=== PATIENT | female | born 1975 | race Caucasian/White ===

== ENCOUNTER → 2020-03-11 17:18 | Outpatient (CLI) | payer BC, SELFPAY ==
--- NOTE | ~2020-03-11 | MM_ITS ---
EXAMINATION: MM screening jacob BI w yrn HISTORY: Screening mammogram TECHNIQUE: Craniocaudal and mediolateral oblique 3-D tomosynthesis images were obtained and synthetic 2-D images were generated. CAD analysis was submitted and interpreted. COMPARISON: 02/03/2019, 12/26/2017 bilateral digital screening mammogram examinations BREAST PARENCHYMAL COMPOSITION: There are scattered areas of fibroglandular density. FINDINGS: There is no evidence of suspicious mass, calcification, or architectural distortion to sugg est malignancy in either breast. There has been no suspicious interval change. IMPRESSION: 1. No mammographic evidence of malignancy. 2. Recommend routine screening mammography in one year. BI-RADS Category 1: Negative Reviewed, dictated and finalized at location A. ER UP
== END ==
PROVIDERS: Visit Provider Obstetrics & Gynecology
DX: Z12.31 Encounter for screening mammogram for malignant neoplasm of breast (principal)
CPT/HCPCS: 77063; 77067

== ENCOUNTER → 2021-06-09 07:08 | Outpatient (CLI) | payer BC, SELFPAY ==
--- NOTE | ~2021-06-09 | MM_ITS ---
EXAMINATION: MM screening jacob BI w yrn HISTORY: Screening mammogram TECHNIQUE: Craniocaudal and mediolateral oblique 3-D tomosynthesis images were obtained and synthetic 2-D images were generated. CAD analysis was submitted and interpreted. COMPARISON: 03/07/2020, 02/03/2019, 12/26/2017 bilateral screening mammogram examinations BREAST PARENCHYMAL COMPOSITION: There are scattered areas of fibroglandular density. FINDINGS: There is no evidence of suspicious mass, calcification, or architectural distortion to sugg est malignancy in either breast. There has been no suspicious interval change. IMPRESSION: 1. No mammographic evidence of malignancy. 2. Recommend routine screening mammography in one year. BI-RADS Category 1: Negative Reviewed, dictated and finalized at location A. 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
== END ==
PROVIDERS: PCP Nurse Practitioner Family; Visit Provider Obstetrics & Gynecology
DX: Z12.31 Encounter for screening mammogram for malignant neoplasm of breast (principal)
CPT/HCPCS: 77063; 77067

== ENCOUNTER 2022-05-10 08:58 | Emergency (ER) | payer BC, SELFPAY ==
--- NOTE | ~2022-05-10 | XR_ITS ---
Clinical Indication: Chest pain PA and lateral views of the chest: Comparison: None Findings: The lungs are clear, without evidence of focal consolidation or pleural effusion. Cardiome diastinal silhouette is within normal limits. Bones and soft tissues are unremarkable. Impression: Normal chest. Reviewed, dictated and finalized at [facility]. 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
--- NOTE | 2022-05-10 09:00 | ECG_ITS ---
Measurements Intervals [place] Rate: 118 P: 55 PA: 115 QRS: 33 QRSD: 89 T: 39 QT: 334 QTc: 469 Interpretive Statements SINUS TACHYCARDIA WITH SHORT PA INTERVAL POSSIBLE LEFT ATRIAL ENLARGEMENT NONSPECIFIC ST & T-WAVE ABNORMALITY- ANT/INF LEADS ABNORMAL ECG NO PREVIOUS ECG AVAILABLE FOR COMPARISON Electronically Signed On 05-10-2022 10:52:42 MOTOR ANALYST by Abdon Whitley D.O.
[2022-05-10 09:04] VITALS: BP 150/77; PULSE 116; RESP 16; TEMP 36.9; O2SAT 97
[2022-05-10 09:19] LABS: Basophils Absolute Auto 0.1 K/mm3 (0.0-0.1); Basophils Percent Auto 0.4 % (0.2-1.2); Eosinophils Absolute Auto 0.2 K/mm3 (0-0.3); Eosinophils Percent Auto 1.3 % (0-4.4); Hematocrit 39.8 % (37.0-47.0); Hemoglobin 13.2 g/dL (12.0-15.0); Immature Granulocyte Absolute 0.09 K/mm3 (0.00-0.031); Immature Granulocyte Percent A 0.8 % (0-0.5); Lymphocytes Absolute Auto 3.48 K/mm3 (0.9-3.2); Lymphocytes Percent Auto 29.3 % (18.3-44.2); Mean Corpuscular HGB Conc 33.2 g/dl (32-36); Mean Corpuscular Hemoglobin 29.6 pg (26-34); Mean Corpuscular Volume 89.2 fl (80-100); Mean Platelet Volume 10.2 fl (7.4-10.4); Monocytes Absolute Auto 0.6 K/mm3 (0.1-0.6); Monocytes Percent Auto 5.4 % (2.6-8.5); Neutrophils Absolute Auto 7.5 K/mm3 (1.3-6.7); Neutrophils Percent Auto 62.8 % (45.5-73.1); Platelet Count Result 419 k/mm3 (150-375); Red Blood Count 4.46 M/mm3 (4.2-5.4); Red Cell Distribution Width 13.7 % (11.5-14.5); White Blood Count 11.9 K/mm3 (4.5-10.0)
[2022-05-10 09:30] LABS: INR 0.9; Prothrombin Time 12.2 Seconds (11.1-14.7)
[2022-05-10 09:31] LABS: Partial Thromboplastin Time 24.1 SECONDS (22.3-36.8); Potassium 3.3 mmol/L (3.4-5.0)
[2022-05-10 09:32] LABS: Alanine Aminotransferase 24 U/L (6-35); Albumin Level 4.4 g/dL (3.5-5.1); Alkaline Phosphatase 73 U/L (38-126); Anion Gap 10 mmol/L (8-16); Aspartate Amino Transferase 23 U/L (14-36); Bilirubin,Total 0.6 mg/dL (0.2-1.3); Blood Urea Nitrogen 11 mg/dL (7-17); Calcium 8.7 mg/dL (8.4-10.2); Carbon Dioxide 20 mmol/L (22-30); Chloride 106 mmol/L (98-107); Estimated CRCL calculation 87 ml/min; Estimated Glomerular Filt Rate > 60; Glucose 123 mg/dL (65-110); Lipase 57 U/L (23-300); Sodium 136 mmol/L (137-145)
[2022-05-10 09:41] LABS: Troponin I < 0.012 ng/mL (0.000-0.034)
[2022-05-10] MEDS: ONDANSETRON INJ 4 MG/2 ML VIAL IV PUSH (14:08)
[2022-05-10] MEDS: KETOROLAC 30 MG/ML VIAL (*BKC) IV PUSH (14:08)
[2022-05-10 14:24] VITALS: PULSE 97
[2022-05-10 14:25] VITALS: O2SAT 98
[2022-05-10 14:58] LABS: Troponin I < 0.012 ng/mL (0.000-0.034)
[2022-05-10 15:09] VITALS: BP 110/57; PULSE 93; RESP 20; O2SAT 98
[2022-05-10 15:35] LABS: Troponin I < 0.012 ng/mL (0.000-0.034)
--- NOTE | 2022-05-10 15:58 | ED.CHESTPAIN ---
HPI - Chest Pain General Chief Complaint: Chest Pain Stated Complaint: chest pain/n/dizzy Time Seen by Provider: 05/10/22 11:26 History of Present Illness HPI narrative: Patient is a 46-year-old female who presents the ER with reports of chest pain. Began yesterday. Aching and central. Nonradiating. Associated with nausea. Patient then had several rounds of emesis. Since then she has had some aching back pain. No fevers or chills or sweats. No pain with deep breath. No cough. No diarrhea. Denies any abdominal discomfort. No exertional chest pain. No history of cardiac disease. Cannot describe any modifying factors. Related Data Home Medications Medication Instructions Recorded Confirmed amitriptyline 50 mg tablet 50 mg PO QHS 02/23/22 02/23/22 rizatriptan 10 mg tablet See Rx Instructions PO .COMPLEX 02/23/22 02/23/22 Allergies Allergy/AdvReac Type Severity Reaction Status Date / Time No Known Allergies Allergy Unknown Verified 05/10/22 15:10 Review of Systems Review of Systems: All systems reviewed & are unremarkable except as noted in HPI and below Constitutional: Constitutional: Denies chills, Denies fatigue and Denies fever(s) ENT: Denies nasal congestion and Denies sore throat Cardiovascular: Cardiovascular: Reports chest pain, Denies rapid heart rate and Denies radiating jaw, neck or arm pain Respiratory: Respiratory: Denies cough and Denies dyspnea Gastrointestinal: Gastrointestinal: Denies abdominal pain, Denies diarrhea, Reports nausea and Reports vomiting Genitourinary: Genitourinary: Denies dysuria and Denies flank pain [facility] Past Medical History Medical History (Updated 05/10/22 @ 16:00 by Rocky Boo MD) Lesion of liver Migraines Miscarriage (~05/05/96) Screening mammogram, encounter for Surgical History Surgical History History of 08/18/00 primary c/s--breech water retention/swelling Joy 10/15/05 rpt c/s no complications Fredis History of cholecystectomy (09/29/00) Family History Family History Grandparent Hypertension maternal grandfather Diabetes mellitus maternal grandfather maternal grandmother Social History Social History (Updated 02/23/22 @ 07:59 by Patricia Rudolph [facility]) Smoking status: Never smoker Alcohol intake: never Substance use: never Substance use type: does not use Living arrangements: other Additional living arrangements comments: 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 HEAD: Normocephalic, atraumatic. ENT: Mucous membranes moist. CHEST: Clear to auscultation. No respiratory distress. HEART: Tachycardic and regular. Normal peripheral pulses. ABDOMEN: Soft, nontender, nondistended. Back: No reproducible midline or paraspinal muscular tenderness of the T/L-spine. EXTREMITIES: Normal range of motion. No edema. SKIN: Warm, dry, no rash. NEURO: Alert and oriented x3. PSYCH: Normal mood and affect. Course Course Emergency Course: Patient informed of results. Feeling much better after IV Toradol, tachycardia resolved. Troponin negative x2. [place] to be appropriate for outpatient management. Vital Signs Vital signs: Vital Signs Temperature 98.4 F 05/10/22 09:04 Pulse Rate 116 H 05/10/22 09:04 Respiratory Rate 16 05/10/22 09:04 Blood Pressure 150/77 H 05/10/22 09:04 Pulse Oximetry 97 05/10/22 09:04 Oxygen Delivery Room Air 05/10/22 09:04 Temperature 98.4 F 05/10/22 09:04 Pulse Rate 93 05/10/22 15:09 Respiratory Rate 20 05/10/22 15:09 Blood Pressure 110/57 L 05/10/22 15:09 P
[2022-05-10 16:10] VITALS: BP 109/53; PULSE 100; RESP 20; O2SAT 98
== END 2022-05-10 16:12 | disposition home or self-care (01) ==
PROVIDERS: Emergency Provider Emergency Medicine; PCP Nurse Practitioner Family
DX: R07.9 Chest pain, unspecified (principal); R00.0 Tachycardia, unspecified; R94.31 Abnormal electrocardiogram [ECG] [EKG]
CPT/HCPCS: 36415; 71046; 80053; 83690; 84484; 85025; 85610; 85730; 93005; 96374; 96375; 99284; J1885; J2405

== ENCOUNTER → 2022-06-12 08:39 | Outpatient (CLI) | payer BC, SELFPAY ==
--- NOTE | ~2022-06-12 | MM_ITS ---
EXAMINATION: MM screening jacob BI w yrn HISTORY: Screening mammogram TECHNIQUE: Craniocaudal and mediolateral oblique 3-D tomosynthesis images were obtained and synthetic 2-D images were generated. CAD analysis was submitted and interpreted. COMPARISON: June 09, 2021, March 11, 2020, February 03, 2019 bilateral screening mammogram exam inations BREAST PARENCHYMAL COMPOSITION: There are scattered areas of fibroglandular density. FINDINGS: There is no evidence of suspicious mass, calcification, or architectural distortion to sugg est malignancy in either breast. There has been no suspicious interval change. IMPRESSION: 1. No mammographic evidence of malignancy. 2. Recommend routine screening mammography in one year. BI-RADS Category 1: Negative Reviewed, dictated and finalized at location A. 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
== END ==
PROVIDERS: PCP Nurse Practitioner Family; Visit Provider Obstetrics & Gynecology
DX: Z12.31 Encounter for screening mammogram for malignant neoplasm of breast (principal)
CPT/HCPCS: 77063; 77067

== ENCOUNTER 2022-07-19 17:51 | Emergency (ER) | payer BC, SELFPAY ==
[2022-07-19 18:00] VITALS: BP 125/69; PULSE 101; RESP 16; TEMP 36.6; O2SAT 100
--- NOTE | 2022-07-19 18:27 | ED.URI ---
HPI - URI/Sore Throat General Chief Complaint: Upper Respiratory Infection Stated Complaint: Lt Ear Irritation,Sore Throat,Congestion Source: patient Mode of arrival: ambulatory Limitations: no limitations History of Present Illness HPI Narrative: 46-year-old female presents to [facility] with complaints of sinus pressure, nasal congestion, left ear pain and pressure, sore throat, body aches and chills for the past 4-5 days. Patient takes Zyrtec and Flonase daily. Patient also has been taking [id number] decongestants, ibuprofen and using saline flushes with little relief. Patient is a nonsmoker. Patient denies sick contacts. Patient denies recent travel. Patient denies concerns for COVID and declines COVID test today MD elicited complaint: cough, sore throat, rhinorrhea, nasal congestion and sinus pain Onset (ago): day(s) (4) Consistency: constant Able to tolerate fluids by mouth: Yes Relieving factors: nothing Treatments prior to arrival: ibuprofen and cold medicine Related Data Home Medications Medication Instructions Recorded Confirmed amitriptyline 50 mg tablet 75 mg PO QHS 02/23/22 07/19/22 rizatriptan 10 mg tablet See Rx Instructions PO .COMPLEX 02/23/22 07/19/22 Allergies Allergy/AdvReac Type Severity Reaction Status Date / Time No Known Allergies Allergy Unknown Verified 07/19/22 18:04 Review of Systems Constitutional: Constitutional: Reports chills, Reports fatigue and Denies fever(s) ENT: Denies vertigo, Denies dizziness, Denies epistaxis, Reports nasal congestion and Reports sore throat Comments: Left ear pain, sinus pressure, runny nose Respiratory: Respiratory: Reports cough, Denies dyspnea and Denies wheezing Gastrointestinal: Gastrointestinal: Denies abdominal pain, Denies constipation, Denies heartburn and Denies diarrhea Integumentary/Breasts: Skin/Breast: Denies pruritus, Denies erythema and Denies rash Neurologic: Denies vertigo, Denies dizziness, Denies syncope and Denies headache(s) [facility] Past Medical History Medical History Lesion of liver Migraines Miscarriage (~05/05/96) Screening mammogram, encounter for Surgical History Surgical History History of 08/18/00 primary c/s--breech water retention/swelling Joy 10/15/05 rpt c/s no complications Fredis History of cholecystectomy (09/29/00) Family History Family History Grandparent Hypertension maternal grandfather Diabetes mellitus maternal grandfather maternal grandmother Social History Social History Smoking status: Never smoker Alcohol intake: never Substance use: never Substance use type: does not use Living arrangements: other Additional living arrangements comments: 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 There is no relevant family history pertinent to the presenting complaint. Exam Const: General: healthy appearing and no acute distress Nutritional Appearance: well nourished Orientation/consciousness: patient oriented x3 Limitations: no limitations HENMT: Head: normal to inspection Ears: TM's normal bilaterally and TM abnormal dull on the left, wth effusion serous on the left and erythematous on the left Face/Nose/Sinus: Nasal discharge present clear bilateral Mouth: Yes moist mucous membranes Throat: posterior oropharynx normal and uvula midline Other: Moderate bilateral nasal congestion noted, left is worse than right Eyes: Conjunctivae: conjuncti
== END 2022-07-19 18:36 | disposition home or self-care (01) ==
PROVIDERS: Emergency Provider Nurse Practitioner Family; PCP Nurse Practitioner Family
DX: J32.9 Chronic sinusitis, unspecified (principal); H65.112 Acute and subacute allergic otitis media (mucoid) (sanguinous) (serous), left ear
CPT/HCPCS: 87081; 87880; 99213; G0463

== ENCOUNTER 2023-03-24 11:16 | Emergency (ER) | payer BC, SELFPAY ==
--- NOTE | ~2023-03-24 | XR_ITS ---
EXAMINATION: XR chest 2V 03/24/2023 11:59 INDICATION: Cough and shortness of breath PROCEDURE: 2 view chest COMPARISON: 05/10/2022 FINDINGS: The lungs are clear. The cardiomediastinal silhouette is within normal limits. There are no pleural effusions. There is no pneumothorax suspected. IMPRESSION: 1: NO ACUTE CARDIOPULMONARY DISEASE. Reviewed, dictated and finalized at location L. 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
[2023-03-24 11:28] VITALS: BP 121/66; PULSE 88; RESP 18; TEMP 36.5; O2SAT 100
--- NOTE | 2023-03-24 11:54 | ED.URI ---
HPI - URI/Sore Throat General Chief Complaint: Upper Respiratory Infection Stated Complaint: Cough,Congestion,Headache,Shoulder Pain Time Seen by Provider: 03/24/23 11:38 Source: patient and RN notes reviewed Mode of arrival: ambulatory Limitations: no limitations History of Present Illness HPI Narrative: Patient presents today complaining of a 3 day history of sinus pressure, bilateral ear pain, left greater than right, mild cough, midback pain, shortness of breath with exertion, fever up to 102.2. Currently rates her pain 6/10 and has been taking Mucinex, Tylenol, ibuprofen with mild relief. Son is sick with similar symptoms. She is a nonsmoker. Denies history of asthma or COPD. Related Data Home Medications Medication Instructions Recorded Confirmed amitriptyline 50 mg tablet 75 mg PO QHS 02/23/22 03/24/23 Allergies Allergy/AdvReac Type Severity Reaction Status Date / Time No Known Allergies Allergy Unknown Verified 03/24/23 11:46 Review of Systems Review of Systems: CONSTITUTIONAL: Denies body aches, chills, or sweats.+ or fever EYES: Denies visual changes, redness, or discharge. ENT: Denies rhinorrhea, congestion, sore throat. + bilateral ear pain, sinus pressure CARDIOVASCULAR: Denies chest pain, palpitations, or edema. RESPIRATORY: + cough, shortness of breath with exertion GASTROINTESTINAL: Denies abdominal pain, nausea, vomiting, or diarrhea. GENITOURINARY: Denies dysuria or hematuria. SKIN: Denies rash, itching, or wounds. MUSCULOSKELETAL: Denies joint pain, or myalgia.+ mid back pain NEUROLOGIC: Denies headache, numbness, tingling, or weakness. PSYCH: Denies depression or anxiety. [facility] Past Medical History Medical History Lesion of liver Migraines Miscarriage (~05/05/96) Screening mammogram, encounter for Surgical History Surgical History History of 08/18/00 primary c/s--breech water retention/swelling Joy 10/15/05 rpt c/s no complications Fredis History of cholecystectomy (09/29/00) Family History Family History Grandparent Hypertension maternal grandfather Diabetes mellitus maternal grandfather maternal grandmother Social History Social History Smoking status: Never smoker Second hand tobacco smoke exposure: Yes Alcohol intake: never Substance use: never Substance use type: does not use Lack of Transportation: No Lack of Food: Never True Current Housing: I Have Housing Concerned About Future Housing: No Difficulty Paying Gas/Electric Bills: No Difficulty Paying for Meds: No Currently Unemployed: No Education: Bachelor's Degree Difficulty w/ Childcare or Family Care: No Living arrangements: other Additional living arrangements comments: 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 Please see nursing chart for further information. There is no relevant family history pertinent to the presenting complaint Exam Narrative: GENERAL: Well-appearing, well-nourished, and in no acute distress. HEAD: Normocephalic, atraumatic. EYES: EOMI. No redness or drainage. Conjunctivae normal. ENT: Mucous membranes pink and moist. Nares clear. No rhinorrhea. Mild middle ear effusions bilaterally with clear fluid without evidence of bacterial infection. Throat mildly erythematous with mild edema. No exudate. Uvula midline. NECK: Normal AROM. Supple. No lymphade
== END 2023-03-24 12:35 | disposition home or self-care (01) ==
PROVIDERS: Emergency Provider Nurse Practitioner; PCP Nurse Practitioner Family
DX: J06.9 Acute upper respiratory infection, unspecified (principal)
CPT/HCPCS: 71046; 87081; 87880; 99213; G0463

== ENCOUNTER 2023-06-04 08:48 | Emergency (ER) | payer BC, SELFPAY ==
[2023-06-04 09:04] VITALS: BP 119/69; PULSE 98; RESP 16; TEMP 36.6; O2SAT 96
--- NOTE | 2023-06-04 09:22 | ED.URI ---
HPI - URI/Sore Throat General Chief Complaint: Upper Respiratory Infection Stated Complaint: sorethroat,chest congestion,sinus pressure Time Seen by Provider: 06/04/23 09:44 Source: patient and RN notes reviewed Mode of arrival: ambulatory Limitations: no limitations History of Present Illness HPI Narrative: 47-year-old female presented for complaint of cough and chest congestion, nasal congestion, ear pressure, sore throat. Onset 5 days. Reports temp up to 101. Taking mucinex D. Denies sob, wheezing, n/v/d. MD elicited complaint: cough Related Data Home Medications Medication Instructions Recorded Confirmed amitriptyline 50 mg tablet 75 mg PO QHS 02/23/22 03/24/23 rizatriptan 10 mg tablet mg 06/04/23 06/04/23 Allergies Allergy/AdvReac Type Severity Reaction Status Date / Time No Known Allergies Allergy Unknown Verified 06/04/23 09:03 Review of Systems Review of Systems: CONSTITUTIONAL: Endorses malaise, chills, fever EYES: Denies visual changes, redness, or discharge ENT: Reports rhinorrhea, congestion, otalgia, sore throat CARDIOVASCULAR: Denies chest pain, palpitations, edema RESPIRATORY: Reports cough, post nasal drainage. Denies dyspnea GASTROINTESTINAL: Denies abdominal pain, nausea, vomiting, diarrhea SKIN: Denies rash or itching MUSCULOSKELETAL: denies myalgia PMFSH Past Medical History Medical History Lesion of liver Migraines Miscarriage (~05/05/96) Screening mammogram, encounter for Surgical History Surgical History History of 08/18/00 primary c/s--breech water retention/swelling Joy 10/15/05 rpt c/s no complications Fredis History of cholecystectomy (09/29/00) Family History Family History Grandparent Hypertension maternal grandfather Diabetes mellitus maternal grandfather maternal grandmother Social History Social History Smoking status: Never smoker Second hand tobacco smoke exposure: Yes Alcohol intake: never Substance use: never Substance use type: does not use Lack of Transportation: No Lack of Food: Never True Current Housing: I Have Housing Concerned About Future Housing: No Difficulty Paying Gas/Electric Bills: No Difficulty Paying for Meds: No Currently Unemployed: No Education: Bachelor's Degree Difficulty w/ Childcare or Family Care: No Living arrangements: other Additional living arrangements comments: 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 EYES: PERRLA, conjunctivae clear ENT: Mucous membranes moist. Right TM pearly houser with dull light reflex and effusion. Left TM mildly erythematous, and intact with effusion; canal not erythematous, No drainage. no tragal tenderness. Oropharynx not erythematous without lesions or exudate, no drooling, no hoarseness, no trismus, uvula midline. No tripod positioning, muffled voice, soft palate or pharyngeal wall bulging NECK: Supple. No lymphadenopathy CHEST: Clear to auscultation, breath sounds equal. HEART: Regular rate and rhythm. No murmur heard. SKIN: Warm, dry, no rash. NEURO: Alert and oriented x3. PSYCH: Normal mood and affect Course Course Emergency Course: Patient is aware of diagnosis, understands and agrees to treatment plan. Anticipatory guidance given. Patient agrees to follow-up as directed and is aware of reasons to seek care at the emergency department. Portions of this record may have been created with voice recognition software Level of Care: Lizz Mir
== END 2023-06-04 09:59 | disposition home or self-care (01) ==
PROVIDERS: Emergency Provider Nurse Practitioner Family; PCP Nurse Practitioner Family
DX: J06.9 Acute upper respiratory infection, unspecified (principal); H66.002 Acute suppurative otitis media without spontaneous rupture of ear drum, left ear; Z20.822 Contact with and (suspected) exposure to COVID-19
CPT/HCPCS: 87081; 87426; 87804; 87880; 99213; G0463

== ENCOUNTER → 2023-06-18 09:43 | Outpatient (CLI) | payer BC, SELFPAY ==
--- NOTE | ~2023-06-18 | MM_ITS ---
EXAMINATION: MM screening jacob BI w yrn HISTORY: Screening mammogram TECHNIQUE: Craniocaudal and mediolateral oblique 3-D tomosynthesis images were obtained and synthetic 2-D images were generated. CAD analysis was submitted and interpreted. COMPARISON: June 12, 2022, June 09, 2021, March 11, 2020 bilateral screening mammogram exa minations BREAST PARENCHYMAL COMPOSITION: There are scattered areas of fibroglandular density. FINDINGS: There is no evidence of suspicious mass, calcification, or architectural distortion to sugg est malignancy in either breast. There has been no suspicious interval change. IMPRESSION: 1. No mammographic evidence of malignancy. 2. Recommend routine screening mammography in one year. BI-RADS Category 1: Negative Reviewed, dictated and finalized at location A. TUCKER
== END ==
PROVIDERS: PCP Obstetrics & Gynecology; Visit Provider Obstetrics & Gynecology
DX: Z12.31 Encounter for screening mammogram for malignant neoplasm of breast (principal)
CPT/HCPCS: 77063; 77067

== ENCOUNTER 2024-01-05 08:19 | Emergency (ER) | payer BC, SELFPAY ==
--- NOTE | ~2024-01-05 | CT_ITS ---
EXAMINATION: CT abdomen pelvis w con DATE: 01/05/2024 10:19 INDICATION: Nausea, vomiting, and diarrhea. Abdominal pain. TECHNIQUE: Computed tomography (CT) of the abdomen and pelvis was performed with 100 mL Omnipaque 350 intravenous contrast. Automated exposure control and iterative reconstruction technique were employe d. The dose-length product was 359.67 mGy-cm. COMPARISON: CT abdomen and pelvis 08/26/2017 FINDINGS: The visualized portions of the lung bases are clear without pneumonia or pleural effusion. The heart size is normal. No pericardial effusion. The liver demonstrates focal steatosis adjacent to the falciform ligament. There are changes of cholecystectomy. The spleen, pancreas, adrenal glands, and kidneys are normal. There is liquid stool in the colon correlating with the symptom of diarrhea. The appendix is normal. There are no pathologically enlarged lymph nodes. There is no free intraperit mccray fluid. There is mild thoracic and lumbar spondylosis. IMPRESSION: 1. No etiology for the patient's symptoms. Reviewed, dictated and finalized at location A.
--- NOTE | ~2024-01-05 | XR_ITS ---
EXAMINATION: XR chest 1V portable DATE: 01/05/2024 09:26 INDICATION: Chest pain. TECHNIQUE: A single frontal view of the chest was obtained. COMPARISON: Chest 2 views 03/24/2023 FINDINGS: There is no pneumonia, pleural effusion, or pneumothorax. The heart size is normal. Surgica l clips in the right upper quadrant are likely from cholecystectomy. IMPRESSION: 1. No acute cardiopulmonary disease. Reviewed, dictated and finalized at location A.
[2024-01-05 08:25] VITALS: BP 121/65; PULSE 92; RESP 18; O2SAT 98
--- NOTE | 2024-01-05 08:27 | ECG_ITS ---
Test Date: 2024-01-05 08:29:48 Measurements Intervals [place] Rate: 87 P: 62 FL: 107 QRS: 34 QRSD: 90 T: 41 QT: 355 QTc: 429 Interpretive Statements SINUS RHYTHM WITH SHORT FL INTERVAL MINIMAL Q WAVES- INF/LAT LEADS BASELINE ARTIFACT- I, II, AVR, AVL, AVF BORDERLINE ECG No previous ECG available for comparison Electronically Signed On 01-05-2024 09:07:38 CDT by Abdon Whitley D.O.
--- NOTE | 2024-01-05 08:48 | ED.NAVMDI ---
HPI - Nausea/Vomiting/Diarrhea General Chief complaint: Nausea/Vomiting/Diarrhea Stated complaint: nausea, vomiting, diarrhea Time Seen by Provider: 01/05/24 08:35 History of Present Illness HPI Narrative: 48-year-old female with a past medical history of hypertension anxiety presented to the emergency department chief complaint of nauseousness, vomiting, profuse watery diarrhea and some chest tightness radiating to her left jaw. She states that her symptoms started as just nausea and vomiting yesterday which was acute in onset. She did not have any pain at that time and started developing cramping abdominal sensations and watery diarrhea. She has had multiple rounds of moderate diarrhea and then at 4:30 a.m. this morning she woke up with some chest tightness she describes a burning sensation that radiates into her left jaw. Was previously in her normal state of health, denies any new foods or exposures. No in the hospital similar symptoms. Denies any shortness of breath, present abdominal pain, back pain, urinary complaints, complaints, injuries or traumas. History of a cholecystectomy but has her appendix. Related Data Home Medications Medication Instructions Recorded Confirmed amitriptyline 50 mg tablet 75 mg PO QHS 02/23/22 03/24/23 rizatriptan 10 mg tablet mg 06/04/23 06/04/23 Allergies Allergy/AdvReac Type Severity Reaction Status Date / Time No Known Allergies Allergy Unknown Verified 01/05/24 08:39 Review of Systems Review of Systems: As reviewed above in HPI [facility] Past Medical History Medical History Lesion of liver Migraines Miscarriage (~05/05/96) Screening mammogram, encounter for Surgical History Surgical History History of 08/18/00 primary c/s--breech water retention/swelling Joy 10/15/05 rpt c/s no complications Fredis History of cholecystectomy (09/29/00) Family History Family History Grandparent Hypertension maternal grandfather Diabetes mellitus maternal grandfather maternal grandmother Social History Social History Smoking status: Never smoker Second hand tobacco smoke exposure: Yes Alcohol intake: never Substance use: never Substance use type: does not use Lack of Transportation: No Lack of Food: Never True Current Housing: I Have Housing Concerned About Future Housing: No Difficulty Paying Gas/Electric Bills: No Difficulty Paying for Meds: No Currently Unemployed: No Education: Bachelor's Degree Difficulty w/ Childcare or Family Care: No Living arrangements: other Additional living arrangements comments: 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 Mucous membranes moist. NECK: Supple. CHEST: [Clear to auscultation. No respiratory distress.] HEART: [Regular rate and rhythm]. No murmur heard. [Normal peripheral pulses.] ABDOMEN: [Soft, nondistended], [nontender], [No rigidity or guarding] EXTREMITIES: Normal range of motion. [No edema.] SKIN: Warm, dry, no rash. NEURO: [No focal deficits]. Alert and oriented [x3.] PSYCH: [Normal mood and affect.] Course Vital Signs Vital signs: Vital Signs Pulse Rate 92 01/05/24 08:25 Respiratory Rate 18 01/05/24 08:25 Blood Pressure 121/65 01/05/24 08:25 Pulse Oximetry 98 01/05/24 08:25 Oxygen Delivery Room Air 01/05/24 08:
[2024-01-05 09:07] LABS: Basophils Percent Auto 0.2 % (0.2-1.2); Eosinophils Absolute Auto 0.4 K/mm3 (0-0.3); Eosinophils Percent Auto 2.9 % (0-4.4); Hematocrit 45.4 % (37.0-47.0); Hemoglobin 15.5 g/dL (12.0-15.0); Immature Granulocyte Absolute 0.04 K/mm3 (0.00-0.031); Immature Granulocyte Percent A 0.3 % (0-0.5); Lymphocytes Absolute Auto 2.89 K/mm3 (0.9-3.2); Mean Corpuscular HGB Conc 34.1 g/dl (32-36); Mean Corpuscular Hemoglobin 29.8 pg (26-34); Mean Corpuscular Volume 87.1 fl (80-100); Monocytes Absolute Auto 0.9 K/mm3 (0.1-0.6); Monocytes Percent Auto 7.2 % (2.6-8.5); Neutrophils Absolute Auto 7.9 K/mm3 (1.3-6.7); Neutrophils Percent Auto 65.4 % (45.5-73.1); Platelet Count Result 495 k/mm3 (150-375); Red Blood Count 5.21 M/mm3 (4.2-5.4)
[2024-01-05] MEDS: SODIUM CHLORIDE 0.9% IV 1,000 ML 999 ML IV CONT (09:07)
[2024-01-05] MEDS: FAMOTIDINE 20 MG/2 ML VIAL IV PUSH (09:07)
[2024-01-05] MEDS: MAG HYDROX/AL HYDROX/SIMETH 30 ML UDC PO (09:07)
[2024-01-05] MEDS: ONDANSETRON INJ 4 MG/2 ML VIAL IV PUSH (09:07)
[2024-01-05 09:14] LABS: Alanine Aminotransferase 36 U/L (6-35); Albumin Level 4.8 g/dL (3.5-5.1); Alkaline Phosphatase 102 U/L (38-126); Anion Gap 12 mmol/L (4-12); Aspartate Amino Transferase 26 U/L (14-36); Bilirubin,Total 1.4 mg/dL (0.2-1.3); Blood Urea Nitrogen 15 mg/dL (7-17); Calcium 9.1 mg/dL (8.4-10.2); Carbon Dioxide 23 mmol/L (22-30); Chloride 102 mmol/L (98-107); Estimated CRCL calculation 59 ml/min; Estimated Glomerular Filt Rate > 60; Glucose 92 mg/dL (65-110); Lipase 42 U/L (23-300); Potassium 3.6 mmol/L (3.4-5.0); Sodium 137 mmol/L (137-145)
[2024-01-05 09:15] LABS: Lactic Acid Reflex 0.8 mmol/L (0.7-2.0)
[2024-01-05 09:25] LABS: Troponin I < 0.012 ng/mL (0.000-0.034)
[2024-01-05 09:30] VITALS: BP 121/74; PULSE 73; RESP 15; O2SAT 100
[2024-01-05 09:56] LABS: Add Urine Microscopic? YES; Appearance Urine Cloudy (Clear); Bacteria Urine 4+ /hpf; Bilirubin Urine 2+ (Negative); Blood Urine Negative (Negative); Color Urine Dark Yellow (Yellow); Glucose Urine UA Negative (Negative); Ketones Urine 2+ mg/dL (Negative); Leukocyte Esterase Ur Trace LEU/UL (Negative); Nitrate Urine Negative (Negative); Non Pathogenic Casts >20; Protein Urine 1+ mg/dL (Negative); Specific Grav Ur 1.037 (1.001-1.035); Squamous Epithelial Cell Urine Moderate /hpf (Few); WBC Urine 0-5 /hpf (0-3); pH Urine 5.5 (5.0-9.0)
[2024-01-05 10:04] LABS: BEDSIDEPREGUCG Negative (Negative)
[2024-01-05 10:31] VITALS: BP 119/69; PULSE 84; RESP 20; O2SAT 100
[2024-01-05 11:00] VITALS: BP 123/75; PULSE 79; RESP 19; O2SAT 100
[2024-01-05 11:10] VITALS: BP 136/75; PULSE 92; RESP 20; O2SAT 98
== END 2024-01-05 11:10 | disposition home or self-care (01) ==
PROVIDERS: Emergency Provider Student in an Organized Health Care Education/Training Program; PCP Nurse Practitioner Family
DX: K52.9 Noninfective gastroenteritis and colitis, unspecified (principal); N39.0 Urinary tract infection, site not specified; Z90.49 Acquired absence of other specified parts of digestive tract
CPT/HCPCS: 36415; 71045; 74177; 80053; 81001; 81025; 83605; 83690; 84484; 85025; 93005; 96361; 96374; 96375; 99284; A9270; J2405; J7030; Q9967

== ENCOUNTER 2024-06-23 08:48 | Outpatient (CLI) | payer BC, SELFPAY ==
--- NOTE | ~2024-06-23 | MM_ITS ---
EXAMINATION: MM screening jacob BI w yrn HISTORY: Screening mammogram TECHNIQUE: Craniocaudal and mediolateral oblique 3-D tomosynthesis images were obtained and synthetic 2-D images were generated. CAD analysis was submitted and interpreted. COMPARISON: 06/18/2023, 06/12/2022, 06/09/2021 BREAST PARENCHYMAL COMPOSITION:Dense: The breasts are heterogeneously dense, which may obscure small masses. FINDINGS: No suspicious mass, calcification, or architectural distortion are identified in either davi ast to suggest malignancy. There has been no suspicious interval change. IMPRESSION: No mammographic evidence of malignancy. Recommend routine screening mammography in one year. BI-RADS Category 1: Negative Reviewed, dictated and finalized at location .
== END 2024-06-23 08:49 | disposition home or self-care (01) ==
LOC: MICIMG 08:49
PROVIDERS: PCP Nurse Practitioner Family; Visit Provider Obstetrics & Gynecology
DX: Z12.31 Encounter for screening mammogram for malignant neoplasm of breast (principal)
CPT/HCPCS: 77063; 77067

== ENCOUNTER 2025-03-26 08:05 | Emergency (ER) | payer BC, SELFPAY ==
--- NOTE | 2025-03-26 08:11 | ED.URI ---
HPI - URI/Sore Throat General Chief Complaint: Upper Respiratory Infection Stated Complaint: Sinus Infection Source: patient and RN notes reviewed Mode of arrival: ambulatory Limitations: no limitations History of Present Illness HPI Narrative: Patient is a 49-year-old female who presents to the [facility] with multiple complaints. Patient has complaints of sore throat, bilateral ear pain (worse on left than the right), congestion, and sinus tenderness. Patient states that her symptoms began on Tuesday. They have progressively worsened over the last few days. Patient states that she has been experiencing low-grade fevers. Patient also endorses generalized body aches. She has been around multiple sick contacts from work. Related Data Home Medications ?Medication ?Instructions ?Recorded ?Confirmed ?Last Taken ?Type amitriptyline 50 mg tablet 75 mg PO QHS 02/23/22 03/21/25 Unknown History rizatriptan 10 mg tablet mg 06/04/23 03/21/25 Unknown History citalopram 20 mg tablet 20 mg PO DAILY 03/05/24 03/21/25 Unknown History tirzepatide (weight loss) 15 15 mg subcut WEEKLY 03/05/24 03/21/25 Unknown History mg/0.5 mL subcutaneous pen injector (Zepbound) Allergies Allergy/AdvReac Type Severity Reaction Status Date / Time No Known Allergies Allergy Unknown Verified 03/26/25 08:26 Review of Systems Review of Systems: CONSTITUTIONAL: Reports fever and chills. EYES: Denies visual changes, redness, or discharge. ENT: Reports otalgia and sore throat. Reports congestion. CARDIOVASCULAR: Denies chest pain, palpitations, or edema. RESPIRATORY: Denies cough or dyspnea. GASTROINTESTINAL: Denies abdominal pain, nausea, vomiting, or diarrhea. GENITOURINARY: Denies dysuria or hematuria. SKIN: Denies rash or itching. MUSCULOSKELETAL: Denies back pain and joint pain, but reports myalgia. NEUROLOGIC: Denies headache, numbness, or weakness. Pertinent positives per HPI. [facility] Past Medical History Medical History Screening mammogram, encounter for Lesion of liver Miscarriage (~05/05/96) Migraines Surgical History Surgical History History of cholecystectomy (09/29/00) History of 08/18/00 primary c/s--breech water retention/swelling Joy 10/15/05 rpt c/s no complications Fredis Family History Family History Grandparent Hypertension maternal grandfather Diabetes mellitus maternal grandfather maternal grandmother Mother Pulmonary hypertension Social History Social History Smoking status: Never smoker Second hand tobacco smoke exposure: Yes Alcohol intake: never Substance use: never Substance use type: does not use Lack of Transportation: No Lack of Food: Never True Current Housing: I Have Housing Concerned About Future Housing: No Difficulty Paying Gas/Electric Bills: No Difficulty Paying for Meds: No Currently Unemployed: No Education: Bachelor's Degree Difficulty w/ Childcare or Family Care: No Living arrangements: with family Additional living arrangements comments: 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 There is no relevant family history pertinent to the patient complaint. Exam Narrative: GENERAL: This is a well-nourished, well-developed patient, in no apparent distress. HEAD: normocephalic, atraumatic. EYES: Sclera clear/white. Vision is grossly intact. EARS: External ears normal, auditory canals clear and without drainage. Bilateral TMs erythematous. Hearing grossly intact. NOSE: External nose normal with no obvious nasal discharge, nares with redness. Sinus tenderness. THROAT: Mucous membranes moist, oropharyngeal erythema. NECK: Neck supple, non-tender without lymphadenopathy, masses or thyromegaly. CARDIOVASCULAR: Regular rate and rhythm without murmurs, gallops, or rubs. RESPIRATORY: Clear to auscultation. Breath sounds equal bilaterally. No wheezes, rales, or rhonchi. GASTROINTESTINAL: Abdomen soft, non-tender, nondistended. Bowel sounds are active. No hepato-splenomegaly, or palpable masses. No guarding. SKIN: warm, intact with no suspicious lesions or rash, good texture and turgor. NEURO: awake, alert, and oriented to person, place and time. There were no obvious focal neurologic abnormalities. Course Course Level of Care: Express Care Visit Vital Signs Vital signs: Vital Signs Temperature 97.6 F 03/26/25 08:38 Pulse Rate 84 03/26/25 08:38 Respiratory Rate 24 H 03/26/25 08:38 Blood Pressure 114/42 L 03/26/25 08:38 Pulse Oximetry 100 03/26/25 08:38 Oxygen Delivery Room Air 03/26/25 08:38 Temperature 97.6 F 03/26/25 08:38 Pulse Rate 84 03/26/25 08:38 Respiratory Rate 24 H 03/26/25 08:38 Blood Pressure 114/42 L 03/26/25 08:38 Pulse Oximetry 100 03/26/25 08:38 Oxygen Delivery Room Air 03/26/25 08:38 Reviewed MDM MDM Narrative Medical decision making narrative: Take antibiotics as directed. May given ibuprofen and/or Tylenol as needed for pain and/or fever. Follow up with primary care provider in 7-10 days to have ear rechecked. Go to the ER for any new or worsening symptoms. Avoid smoking/second-hand smoke. Continue to take Tylenol or Motrin for pain. Increase your Vitamin C intake. Use a humidifier or vaporizer at night. Take Medications as prescribed. Drink plenty of water. 8-10 glasses per day. Use flonase 2 times per day for 5 days then as needed Take mucinex 2 times per day and be sure to take with 8oz of water. Follow up with Primary provider if not getting better. Differential Diagnosis Differential Diagnosis: sinusitis, upper respiratory infection, strep, influenza, covid, otitis media Lab Data MDM Lab Attestation statement: I personally reviewed the patient's lab results. Critical Care Time Critical Care Time Critical Care Time: No Discharge Plan Discharge Clinical Impression: Acute left otitis media Sinusitis Qualifiers: Sinusitis location: unspecified location Chronicity: acute Recurrence: non-recurrent Qualified Code(s): J01.90 - Acute sinusitis, unspecified Patient Disposition: Home Condition: Stable Instructions: Antibiotic Form, Sinusitis (ED), Ear Infection (ED) Additional Instructions: Take antibiotics as directed. May given ibuprofen and/or Tylenol as needed for pain and/or fever. Follow up with primary care provider in 7-10 days to have ear rechecked. Go to the ER for any new or worsening symptoms. Avoid smoking/second-hand smoke. Continue to take Tylenol or Motrin for pain. Increase your Vitamin C intake. Use a humidifier or vaporizer at night. Take Medications as prescribed. Drink plenty of water. 8-10 glasses per day. Use flonase 2 times per day for 5 days then as needed Take mucinex 2 times per day and be sure to take with 8oz of water. Follow up with Primary provider if not getting better. Patient Language: Tuvaluan Prescriptions: New amoxicillin-pot clavulanate 875-125 mg tablet 1 tablet PO Q12H 10 Days Qty: 20 0RF fluticasone propionate [24 Hour Allergy Relief] 50 mcg/actuation spray,suspension 1 spray intranasal DAILY Qty: 16 0RF Rx Instructions: administer into each nostril No Action rizatriptan 10 mg tablet amitriptyline 50 mg tablet 75 mg PO QHS citalopram 20 mg tablet 20 mg PO DAILY Zepbound 15 mg/0.5 mL pen injector 15 mg subcut WEEKLY norethindrone ac-eth estradiol [Loestrin 05/07 (21)] 1-20 mg-mcg tablet 1 tablet PO DAILY Qty: 84 3RF Rx Instructions: take 1 tablet by mouth daily in continuous manner skipping the placebo pills Follow-up/Referrals: Radha,Kesha Valladares [Other] Time of Disposition: 08:38
[2025-03-26 08:38] VITALS: BP 114/42; PULSE 84; RESP 24; TEMP 36.4; O2SAT 100
[2025-03-26 08:40] LABS: EDCOVIDSCREEN Negative (Negative)
[2025-03-26 08:41] LABS: EDINFLUASCREEN Negative (Negative); EDINFLUBSCREEN Negative (Negative); EDSTREPNEGPOS1 Negative (Negative)
== END 2025-03-26 08:41 | disposition home or self-care (01) ==
PROVIDERS: Emergency Provider Nurse Practitioner
DX: H66.92 Otitis media, unspecified, left ear (principal); J01.90 Acute sinusitis, unspecified; Z20.822 Contact with and (suspected) exposure to COVID-19
CPT/HCPCS: 87081; 87426; 87804; 87880; 99213; G0463